=== PATIENT | female | born 1955 | race Caucasian/White ===

== ENCOUNTER 2019-03-01 16:40 | Outpatient (REF) | payer MEDICARE, MEDICAID, SELFPAY ==
[2019-03-01 21:40] LABS: Anion Gap 11.9 mmol/L (3-11); BUN 26 mg/dL (7-18); CO2 28.1 mmol/L (21.0-32.0); CREATININE 0.72 mg/dL (0.55-1.02); Calcium 9.6 mg/dL (8.5-10.1); Chloride 100 mmol/L (98-107); Creatine Kinase 77 U/L (26-192); Glucose 108 mg/dL (70-100); Potassium 4.2 mmol/L (3.5-5.1); Sodium 140 mmol/L (136-145)
== END 2019-03-01 17:00 ==
LOC: NCHCN 16:40
PROVIDERS: PCP Family Medicine; Visit Provider Registered Nurse
DX: I10 Essential (primary) hypertension (principal); M79.10 Myalgia, unspecified site
CPT/HCPCS: 80048; 82550

== ENCOUNTER 2019-12-06 12:22 | Outpatient (REF) | payer MEDICARE, MEDICAID, SELFPAY ==
[2020-02-18 09:37] LABS: Specimen Description Sputum
== END 2019-12-06 12:42 ==
LOC: NCHCN 12:22
PROVIDERS: PCP Family Medicine; Visit Provider Registered Nurse
DX: R05 Cough (principal)
CPT/HCPCS: 87116; 87206; 87070; 87205

== ENCOUNTER 2020-03-20 14:19 | Outpatient (REF) | payer MEDICARE, MEDICAID, SELFPAY ==
[2020-03-20 21:36] LABS: Anion Gap 6.6 mmol/L (3-11); BUN 21 mg/dL (7-18); CO2 30.4 mmol/L (21.0-32.0); CREATININE 0.89 mg/dL (0.55-1.02); Calcium 9.8 mg/dL (8.5-10.1); Chloride 103 mmol/L (98-107); Glucose 103 mg/dL (74-106); Potassium 4.8 mmol/L (3.5-5.1); Sodium 140 mmol/L (136-145); TSH 3.64 uIU/mL (0.36-3.74)
== END 2020-03-20 14:39 ==
LOC: NCHCN 14:19
PROVIDERS: PCP Family Medicine; Visit Provider Registered Nurse
DX: R73.03 Prediabetes (principal); I10 Essential (primary) hypertension; R94.6 Abnormal results of thyroid function studies
CPT/HCPCS: 80048; 83036; 84443

== ENCOUNTER 2020-06-30 20:07 | Outpatient (REF) | payer MEDICARE, MEDICAID, SELFPAY ==
[2020-06-30 20:53] LABS: NT-proBNP 42 pg/mL (<300)
== END 2020-06-30 20:27 ==
LOC: NCHCN 20:07
PROVIDERS: PCP Family Medicine; Visit Provider Registered Nurse
DX: I10 Essential (primary) hypertension (principal); R00.0 Tachycardia, unspecified; R06.00 Dyspnea, unspecified; R06.02 Shortness of breath
CPT/HCPCS: 83880

== ENCOUNTER 2021-10-26 15:01 | Outpatient (REF) | payer MEDICARE, MEDICAID, SELFPAY ==
[2021-10-26 21:41] LABS: Hemoglobin A1C 5.8 % (<5.7)
[2021-10-26 21:54] LABS: Anion Gap 9.9 mmol/L (3-11); BUN 30 mg/dL (7-18); CO2 28.1 mmol/L (21.0-32.0); CREATININE 0.8 mg/dL (0.55-1.02); Calcium 9.5 mg/dL (8.5-10.1); Calculated LDL 148 mg/dL (<100); Chloride 99 mmol/L (98-107); Cholesterol 221 mg/dL (<200); Glucose 104 mg/dL (74-106); HDL Cholesterol 50 mg/dL (40-60); Potassium 3.9 mmol/L (3.5-5.1); Sodium 137 mmol/L (136-145); TSH (W/Ref FT4) 3.42 uIU/mL (0.36-3.74); Triglyceride 116 mg/dL (<150)
== END 2021-10-26 15:02 | disposition home or self-care (01) ==
LOC: NCHCN 15:01
PROVIDERS: PCP Family Medicine; Visit Provider Registered Nurse
DX: I10 Essential (primary) hypertension (principal); R73.03 Prediabetes; R94.6 Abnormal results of thyroid function studies
CPT/HCPCS: 80048; 80061; 83036; 84443